=== PATIENT | female | born 1945 | race Caucasian/White ===

== ENCOUNTER 2024-08-27 13:03 | Emergency (ER) | payer MEDICARE ==
[~2024-08-27] VITALS: Ht 165.1 cm; Wt 73.5 kg
[~2024-08-27 13:03] MED LIST: ALPRAZOLAM1 MG; AMOX TR-K CLV1 EAC2 PO; ASPIR 8181 MG PO; BACLOFEN10 MG PO; CALCIUM+D PO; CIPRO500 MG PO; DICLOFENAC SOD100 GM TOP; DICYCLOMINE HCL10 MG PO; DULOXETINE HCL30 MG PO; FUROSEMIDE20 MG PO; GABAPENTIN300 MG PO; METFORMIN HCL1000 MG PO; METFORMIN HCL500 M2 PO; NAMENDA10 MG PO; ONDANSETRON ODT4 MG PO; PLAVIX75 MG PO; PYRIDIUM100 MG PO; SIMVASTATIN20 MG PO; TOPIRAMATE100 MG PO
[2024-08-27] MEDS ORDERED: LEVOCETIRIZINE D5 MG PO (13:30)
[2024-08-27] MEDS ORDERED: CITALOPRAM HBR20 MG (13:30)
[2024-08-27] MEDS ORDERED: KLOR-CON 1010 MEQ (13:30)
[2024-08-27] MEDS: ACETAMINOPHEN 1000 MG/100 ML IV STA (14:15)
[2024-08-27] MEDS: SODIUM CHLORIDE 0.9% 500ML 500 ML IV ONE (14:16)
[2024-08-27] MEDS: ONDANSETRON HCL INJ 2MG/ML 2ML 2 MG/ML VIAL IV STA (14:16)
[2024-08-27 14:24] LABS: BASOPHILS % 0.4 % (0.0-1.0); EOSINOPHILS % 1.6 % (0.0-6.0); LYMPHOCYTES % 11.6 % (18.0-39.1); MONOCYTES % 9.2 % (4.4-11.3); NEUTROPHILS % 76.9 % (38.7-80.0); RED CELL DISTRIBUTION WIDTH 13.3 % (11.7-14.4)
[2024-08-27 14:34] LABS: LEUKOCYTE ESTERASE ,URINE NEGATIVE (NEGATIVE)
[2024-08-27 14:35] LABS: PROTEIN,URINE DIPSTICK TRACE (NEGATIVE); URINE UROBILINOGEN 1 mg/dL (0.2 - 1)
[2024-08-27 14:43] LABS: WBC,URINE (MAN) 21-50 /HPF (0-5)
[2024-08-27 14:44] LABS: EPITHELIAL CELLS,URINE FEW /LPF
[2024-08-27 14:51] LABS: INR 0.85
[2024-08-27 14:52] LABS: EST GLOMERULAR FILTRATION RATE 43.0 ML/MIN (>=60)
[2024-08-27 17:06] VITALS: TEMP 97.8
[2024-08-27] MEDS: Vancomycin IV 1 GM in SODIUM CHLORIDE 0.9% 250ML 250 ML IV ONE (17:45)
[2024-08-27] MEDS ORDERED: IOPAMIDOL 370 MG/ML 100 ML INFUS..BTL INJ ONE (19:03)
[2024-08-27 19:10] VITALS: PULSE 71; RESP 16; O2SAT 95
== END 2024-08-27 19:35 | disposition other institution (70) ==
LOC: ER 13:09
DX: S22.42XA Multiple fractures of ribs, left side, initial encounter for closed fracture (principal); R53.1 Weakness; W18.39XA Other fall on same level, initial encounter; N13.2 Hydronephrosis with renal and ureteral calculous obstruction; N12 Tubulo-interstitial nephritis, not specified as acute or chronic; N39.0 Urinary tract infection, site not specified; R16.0 Hepatomegaly, not elsewhere classified; K80.20 Calculus of gallbladder without cholecystitis without obstruction; I10 Essential (primary) hypertension; E11.65 Type 2 diabetes mellitus with hyperglycemia; E78.5 Hyperlipidemia, unspecified; F03.90 Unspecified dementia, unspecified severity, without behavioral disturbance, psychotic disturbance, mood disturbance, and anxiety; R94.31 Abnormal electrocardiogram [ECG] [EKG]; Z86.73 Personal history of transient ischemic attack (TIA), and cerebral infarction without residual deficits
CPT/HCPCS: 36415; 70450; 71250; 72125; 74176; 80053; 81001; 82550; 83735; 83880; 84484; 85025; 85610; 85730; 87040; 87071; 87086; 87205; 93005; 99284; J0131; J0696; J2405; J3370; J7040; J7050; Q9967